=== PATIENT | female | born 1935 | race Caucasian/White ===

== ENCOUNTER 2018-11-17 20:20 | Inpatient (IN) | payer MEDICARE ==
[~2018-11-17] VITALS: Ht 165.1 cm; Wt 53.1 kg
--- NOTE | 2018-11-17 21:23 | NUR ---
Dr. graves at bedside
[2018-11-17] MEDS ORDERED: PIPERACILLIN SODIUM/TAZOBACTAM 3.375 G in IV DEXTROSE 5% 50 ML IV ONE (21:45)
[2018-11-17] MEDS ORDERED: IV NORMAL SALINE 1000 ML BAG IV ONE (21:45)
[2018-11-17] MEDS ORDERED: LEVOFLOXACIN 500 MG/D5W 100ML PIGGYBACK IV ONE (21:45)
--- NOTE | 2018-11-17 22:00 | NUR ---
Mendoza catheter inserted 16 sami. UA sample obtained and sent to lab.
[2018-11-17] MEDS ORDERED: LEVOFLOXACIN 500 MG/D5W 100 ML ONE (22:05)
[2018-11-17 22:06] LABS: BASOPHILS # (AUTO) 0.1 K/uL (0.0-8.0); BASOPHILS % (AUTO) 0.6 % (0.0-2.0); EOSINOPHILS # (AUTO) 0.1 K/uL (0.0-0.7); EOSINOPHILS % (AUTO) 1.1 % (0.0-7.0); HEMATOCRIT 38.3 % (31.2-41.9); HEMOGLOBIN 12.9 g/dL (10.9-14.3); LYMPHOCYTES # (AUTO) 1.5 K/uL (20.0-40.0); LYMPHOCYTES % (AUTO) 14.5 % (20.5-51.5); MEAN CORPUSCULAR HEMOGLOBIN 31.7 uug (24.7-32.8); MEAN CORPUSCULAR HGB CONC 34 g/dL (32.3-35.6); MEAN CORPUSCULAR VOLUME 94.3 fL (75.5-95.3); MONOCYTES # (AUTO) 0.8 K/uL (2.0-10.0); MONOCYTES % (AUTO) 7.3 % (0.0-11.0); NEUTROPHILS # (AUTO) 7.9 K/uL (1.8-8.9); NEUTROPHILS % (AUTO) 76.5 % (38.5-71.5); PLATELET COUNT (AUTO) 227 K/uL (179-408); RED BLOOD CELL COUNT(AUTO) 4.06 MIL/uL (3.63-4.92); WHITE BLOOD COUNT (AUTO) 10.3 K/uL (3.8-11.8)
[2018-11-17] MEDS ORDERED: PIPERACILLIN/TAZOBACTAM/D5W 50 ML IV ONE (22:06)
[2018-11-17 22:17] LABS: CARBON DIOXIDE 26 mmol/L (21-32); CHLORIDE 100 mmol/L (98-107); CREATININE 1.2 mg/dL (0.6-1.3); GLUCOSE 164 mg/dL (74-106); POTASSIUM 4.5 mmol/L (3.5-5.1); UREA NITROGEN, BLOOD 17 mg/dL (7-18)
[2018-11-17 22:22] LABS: ALANINE AMINOTRANSFERASE 13 U/L (14-59); ALKALINE PHOSPHATASE 64 U/L (50-136); ASPARTATE AMINOTRANSFERASE 19 U/L (15-37); BILIRUBIN,DIRECT 0.2 mg/dL (0.0-0.2); BILIRUBIN,TOTAL 0.8 mg/dL (0.2-1.0); TOTAL PROTEIN, SERUM 7.9 g/dL (6.4-8.2)
[2018-11-17 22:24] LABS: ACETAMINOPHEN < 2.0 ug/mL (10-30)
[2018-11-17 22:25] LABS: ETHANOL < 3 MG/DL (0-0)
[2018-11-17 22:30] LABS: THYROID STIMULATING HORMONE 0.936 mIU/mL (0.358-3.740)
[2018-11-17 22:44] LABS: *BILIRUBIN,URIN NEGATIVE (NEGATIVE); *BLOOD, URINE NEGATIVE (NEGATIVE); *CLARITY,URINE CLOUDY (CLEAR); *COLOR,URINE YELLOW (YELLOW); *KETONES,URINE NEGATIVE (NEGATIVE); *UROBILINOGEN,URINE 0.2 E.U./dl (NORMAL); LEUKOCYTE ESTERASE ,URINE TRACE (NEGATIVE); NITRITE, URINE POSITIVE (NEGATIVE); UGLUCOSE NEGATIVE (NEGATIVE)
[2018-11-17] MEDS ORDERED: hydrALAZINE HCL 20 MG/1 ML VIAL IV ONE (22:45)
--- NOTE | 2018-11-17 22:46 | NUR ---
patient taken down to CT.
[2018-11-17 22:51] LABS: BACTERIA,URINE MANY /HPF (NONE SEEN); RBC,URINE 0-3 /HPF (0-3); SQUAMOUS EPITHELIAL CELL,UR FEW /HPF (NONE SEEN)
[2018-11-17 22:53] LABS: *AMPHETAMINE, URINE NEGATIVE (NEGATIVE); *BARBITURATE, URINE NEGATIVE (NEGATIVE); *CANNABINOID, URINE NEGATIVE (NEGATIVE); *COCCAINE, URINE NEGATIVE (NEGATIVE); *OPIATE, URINE NEGATIVE (NEGATIVE); *PHENCYCLIDINE SCREEN,URINE NEGATIVE (NEGATIVE)
[2018-11-17] MEDS ORDERED: ONDANSETRON 4 MG/2 ML VIAL ONE (22:58)
[2018-11-17] MEDS ORDERED: ONDANSETRON 4 MG/2 ML VIAL IV ONE (23:00)
[2018-11-17] MEDS ORDERED: hydrALAZINE HCL 20 MG/1 ML VIAL ONE (23:01)
[2018-11-18] MEDS ORDERED: ASPI81TA44 PO (00:26)
[2018-11-18] MEDS ORDERED: ATOR40TA PO (00:26)
[2018-11-18] MEDS ORDERED: AMLO10TA7 PO (00:26)
[2018-11-18] MEDS ORDERED: VALS160T2 PO (00:27)
[2018-11-18] MEDS ORDERED: LEVO100T10 PO (00:27)
[2018-11-18] MEDS ORDERED: DIGO125T PO (00:27)
[2018-11-18] MEDS ORDERED: METO-357 PO (00:27)
[2018-11-18] MEDS ORDERED: NITR1PAT67 TD (00:27)
[2018-11-18] MEDS ORDERED: FERR325T28 PO (00:27)
[2018-11-18] MEDS ORDERED: DABI150C PO (00:27)
[2018-11-18] MEDS ORDERED: MAGNESIUM HYDROXIDE 30 ML LIQUID UDC PO PRN (00:45)
[2018-11-18] MEDS ORDERED: HYDROCODONE/APAP 5-325MG TABLET PO PRN (00:45)
[2018-11-18] MEDS ORDERED: ONDANSETRON 4 MG/2 ML VIAL IV PRN (00:45)
--- NOTE | 2018-11-18 01:30 | NUR ---
patient transferred to med surg. Report given prior to transfer.
--- NOTE | 2018-11-18 01:45 | NUR ---
ADMITTED PATIENT IN TELE FLOOR, NO SOB NO CHEST PAIN. PATIENT AWAKE BUT WITH CONFUSION, BODY CHECK DONE. PATIENT HAS NO COMPLAIN OF PAIN, HEALY CATH PATENT DRAINING WITH YELLOW COLOR URINE IN MODERATE AMOUNT. DAUGHTER AT BED SIDE. CONT TO MONITOR.
[2018-11-18 01:47] VITALS: BP 149/94
[2018-11-18] MEDS ORDERED: CEFTRIAXONE 1 G VIAL ONE (03:43)
[2018-11-18] MEDS: CEFTRIAXONE 1 G in IV DEXTROSE 5% 50 ML IV SCH (03:50)
[2018-11-18 05:07] VITALS: BP 168/86
--- NOTE | 2018-11-18 05:11 | NUR ---
PATIENT ALERT, NO SOB NO CHEST PAIN, TELE MONITOR A FIB BUT CONTROLLED AT 70. HEALY CATH PATENT DRAINING WITH YELLOW COLOR URINE, KEPT CLEAN AND DRY. CONT TO MONITOR.
[2018-11-18 06:35] LABS: BASOPHILS % (AUTO) 0.4 % (0.0-2.0); EOSINOPHILS % (AUTO) 0.1 % (0.0-7.0); HEMATOCRIT 36.9 % (31.2-41.9); HEMOGLOBIN 12.6 g/dL (10.9-14.3); LYMPHOCYTES # (AUTO) 1.4 K/uL (20.0-40.0); LYMPHOCYTES % (AUTO) 14.3 % (20.5-51.5); MEAN CORPUSCULAR HEMOGLOBIN 31.6 uug (24.7-32.8); MEAN CORPUSCULAR HGB CONC 34 g/dL (32.3-35.6); MEAN CORPUSCULAR VOLUME 92.4 fL (75.5-95.3); MONOCYTES # (AUTO) 0.8 K/uL (2.0-10.0); MONOCYTES % (AUTO) 8.2 % (0.0-11.0); NEUTROPHILS # (AUTO) 7.5 K/uL (1.8-8.9); PLATELET COUNT (AUTO) 235 K/uL (179-408); RED BLOOD CELL COUNT(AUTO) 3.99 MIL/uL (3.63-4.92); WHITE BLOOD COUNT (AUTO) 9.7 K/uL (3.8-11.8)
[2018-11-18 06:55] LABS: CARBON DIOXIDE 25 mmol/L (21-32); CHLORIDE 97 mmol/L (98-107); CHOLESTEROL 143 mg/dL (<200); CREATININE 1.1 mg/dL (0.6-1.3); GLUCOSE 150 mg/dL (74-106); HDL CHOLESTEROL 39 mg/dL (40-60); MAGNESIUM 1.6 mg/dL (1.8-2.4); POTASSIUM 4.2 mmol/L (3.5-5.1); TRIGLYCERIDES 113 MG/DL (30-150); UREA NITROGEN, BLOOD 17 mg/dL (7-18)
[2018-11-18] MEDS: ASPIRIN EC 81 MG TABLET.DR PO SCH (10:00)
[2018-11-18] MEDS: DIGOXIN 125 MCG TABLET PO SCH (10:01)
[2018-11-18] MEDS: METOPROLOL SUCCINATE XL 50 MG TAB.SR.24H PO SCH (10:05)
[2018-11-18] MEDS: VALSARTAN 160 MG TABLET PO SCH (10:05)
[2018-11-18] MEDS: AMLODIPINE 10 MG TABLET PO SCH (10:05)
[2018-11-18] MEDS: LEVOTHYROXINE SODIUM 100 MCG TABLET PO SCH (10:09)
[2018-11-18 11:54] VITALS: BP 126/60
[2018-11-18] MEDS ORDERED: DABIGATRAN ETEXILATE MESYLATE 150 MG CAPSULE PO ONE (12:15)
--- NOTE | 2018-11-18 13:00 | NUR ---
DR CRAWFORD AWARE OF TROPONIN LEVEL AT 0.318 STATED WILL CONSULT THE MANUFACTURING ENGINEER CHIEF
[2018-11-18] MEDS: MAGNESIUM SULFATE/D5W 100 ML IV SCH ×2 (15:51→17:08)
--- NOTE | 2018-11-18 16:07 | NUR ---
DR CRAWFORD AWARE OF MAG LEVEL 1.6 AND TROPONIN 0.318 WITH NEW MAG REPLACEMENT ORDERS AND NOTED.
[2018-11-18 16:21] VITALS: BP 150/61
[2018-11-18] MEDS: FERROUS SULFATE 325 MG TABEC PO SCH (17:42)
[2018-11-18] MEDS: NITROGLYCERIN 0.4MG/HR (=16 CM2) PATCH TD SCH (18:12)
--- NOTE | 2018-11-18 18:42 | NUR ---
PATIENTS DAUGHTER BROUGHT IN PATIENTS OWN MEDICATION PRADAXA SENT DOWN THE BOTTLE TO THE PHARMACY FOR VERIFICATION GIVEN TO DAMARI THE PHARMACIST.
[2018-11-18 19:42] VITALS: BP 158/73
--- NOTE | 2018-11-18 19:45 | NUR ---
PATIENT ALERT NO SOB NO CHEST PAIN NOTED, PATIENT HAS NO COMPLAIN OF PAIN. PATIENT HEALY CATH PATENT DRAINING WITH YELLOW COLOR URINE IN MODERATE. FAMILY AT BEDSIDES, PATIENT MORE ORIENTED THAN YESTERDAY. PATIENT BP ELEVATED, DR. BLANCAS HAS ORDER PREVIOUSLY OF PATCH FOR ELEVATED BP. PATIENT HAS NO DIZZINESS, NO HEADACHES ASYMPTOMATIC. PATIENT ON TELE MONITOR SINUS RHYTHM CONT TO MONITOR. Addendum: 11/19/18 at 0328 by ESPERANZA EDMONDSON RN PATIENT TELE MONITOR SINUS RHYTHM CONT TO MONITOR. CHARTING IN ERROR. PATIENT ON TELE MONITOR A FIB CONTROL AT THIS TIME. CONT TO MONITOR.
[2018-11-18] MEDS ORDERED: DABIGATRAN ETEXILATE MESYLATE 75 MG CAPSULE PO ONE (21:00)
[2018-11-18] MEDS: ATORVASTATIN 40 MG TABLET PO SCH (21:39)
[2018-11-19] VITALS: BP 157/78
[2018-11-19] MEDS: CEFTRIAXONE 1 G in IV DEXTROSE 5% 50 ML IV SCH ×2 (00:35→23:49)
[2018-11-19 04:21] VITALS: BP 161/85
[2018-11-19 06:16] LABS: BASOPHILS # (AUTO) 0.1 K/uL (0.0-8.0); BASOPHILS % (AUTO) 0.9 % (0.0-2.0); EOSINOPHILS # (AUTO) 0.2 K/uL (0.0-0.7); EOSINOPHILS % (AUTO) 2.3 % (0.0-7.0); HEMATOCRIT 35.4 % (31.2-41.9); LYMPHOCYTES # (AUTO) 1.5 K/uL (20.0-40.0); LYMPHOCYTES % (AUTO) 17.7 % (20.5-51.5); MEAN CORPUSCULAR HEMOGLOBIN 31.9 uug (24.7-32.8); MEAN CORPUSCULAR HGB CONC 34 g/dL (32.3-35.6); MEAN CORPUSCULAR VOLUME 94.1 fL (75.5-95.3); MONOCYTES # (AUTO) 0.9 K/uL (2.0-10.0); MONOCYTES % (AUTO) 10.3 % (0.0-11.0); NEUTROPHILS % (AUTO) 68.8 % (38.5-71.5); PLATELET COUNT (AUTO) 221 K/uL (179-408); RED BLOOD CELL COUNT(AUTO) 3.77 MIL/uL (3.63-4.92); WHITE BLOOD COUNT (AUTO) 8.6 K/uL (3.8-11.8)
[2018-11-19] MEDS: LEVOTHYROXINE SODIUM 100 MCG TABLET PO SCH (06:20)
[2018-11-19 06:35] LABS: BILIRUBIN,TOTAL 0.8 mg/dL (0.2-1.0); CREATININE 1.3 mg/dL (0.6-1.3); DIGOXIN 1.5 ng/mL (0.9-2.0); MAGNESIUM 2.2 mg/dL (1.8-2.4); PHOSPHOROUS 3.3 mg/dL (2.5-4.9); POTASSIUM 3.7 mmol/L (3.5-5.1); TOTAL PROTEIN, SERUM 6.8 g/dL (6.4-8.2)
--- NOTE | 2018-11-19 06:41 | NUR ---
PATIENT ALERT, NO SOB NO CHEST PAIN NOTED, TELE MONITOR A FIB CONTROL. PATIENT HAS NO COMPLAIN OF PAIN, COMPLAIN OF CONSTIPATION MOM WAS GIVEN AWAITING FOR RESULTS. PATIENT HAS TEA COLOR URINE DRAINING IN MODERATE AMOUNT. ENCOURAGED TO DRINK FLUIDS, NO ABDOMINAL/ANGELIC AREA PAIN, WILL CONT TO MONITOR.
[2018-11-19] MEDS: FERROUS SULFATE 325 MG TABEC PO SCH (08:33)
[2018-11-19] MEDS: ASPIRIN EC 81 MG TABLET.DR PO SCH (08:33)
[2018-11-19] MEDS: NITROGLYCERIN 0.4MG/HR (=16 CM2) PATCH TD SCH (08:37)
[2018-11-19] MEDS: AMLODIPINE 10 MG TABLET PO SCH (08:37)
[2018-11-19] MEDS: VALSARTAN 160 MG TABLET PO SCH (08:38)
[2018-11-19] MEDS: DIGOXIN 125 MCG TABLET PO SCH (08:39)
[2018-11-19] MEDS: METOPROLOL SUCCINATE XL 50 MG TAB.SR.24H PO SCH (08:39)
[2018-11-19] MEDS: Z GUARD REMEDY PASTE 57 GM TUBE TOP PRN (08:40)
[2018-11-19] MEDS ORDERED: DABIGATRAN ETEXILATE MESYLATE 150 MG CAPSULE PO SCH (09:00)
[2018-11-19] MEDS ORDERED: POTASSIUM CHLORIDE 20 MEQ TAB.PRT.SR PO ONE (10:15)
[2018-11-19 11:20] VITALS: BP 143/74
--- NOTE | 2018-11-19 11:30 | NUR ---
PATIENT ASSISTED TO THE COMMODE AND SHE HAD A BOWEL MOVEMENT ASWSITED WITH CLEAN UP AND BACK INTO BED.
--- NOTE | 2018-11-19 14:00 | NUR ---
PATIENT SEEN AND EXAMINED BY DR GLORIA AND SPOKE WITH PATIENTS FAMILY AT THE BEDSIDE IN DETAILS WITH NO NEW ORDERS AT THIS TIME.
[2018-11-19 15:40] VITALS: BP 143/69
--- NOTE | 2018-11-19 17:48 | NUR ---
PATIENT IS EATING BUT APPETITE IS POOR TODAY FAMILY BROUGHT IN SOME FOOD FROM THE OUTSIDE FOR HER AND SHE ATE JUST A LITTLE BITE FLUIDS ENCOURAGED AND WILL CONTINUE TO OBSERVE.
--- NOTE | 2018-11-19 18:39 | NUR ---
PATIENT IS BEING ENCOURAGED TO DRINK MORE FLUIDS FAMILY IN THE ROOM AND WERE INSTRUCTED TO OFFER HER SOME DRINKS EVERY NOW AND THEN AND THEY EXPRESSED UNDERSTANDING.
--- NOTE | 2018-11-19 19:20 | NUR ---
RECEIVED PT AWAKE, ALERT AND ORIENTEDX3. FAMILY AT BEDSIDE. PT SHOWS NO SIGNS OF ACUTE DISTRESS. IV INTACT. SAFETY AND COMFORT PROVIDED. WILL CONTINUE TO MONITOR.
[2018-11-19] MEDS: ATORVASTATIN 40 MG TABLET PO SCH (20:23)
[2018-11-19 20:27] VITALS: BP 139/75
[2018-11-20 00:24] VITALS: BP 135/72
[2018-11-20 04:00] VITALS: BP 132/74
--- NOTE | 2018-11-20 05:58 | NUR ---
PT SLEPT INTERMITTENTLY. PT SHOWS NO SIGNS OF ACUTE DISTRESS. IV INTACT. HEALY INTACT. PT HAD EPISODES OF FORGETFULNESS NEEDS REORIENTATION. PRESCRIBED MEDICATION GIVEN AND PT TOLERATED IT WELL. SAFETY AND COMFORT PROVIDED. ALL NEEDS ARE MET. WILL ENDORSE ACCORDINGLY TO INCOMING NURSE FOR CONTINUITY OF CARE.
[2018-11-20] MEDS: LEVOTHYROXINE SODIUM 100 MCG TABLET PO SCH (06:40)
--- NOTE | 2018-11-20 07:15 | NUR ---
IN BED AWAKE ALERT SEEMS AWARE BUT HAS DISORIENTATION AND FORGETFULNESS ON ROOM AIR WITH NO SHORTNESS OF BREATH AT THIS TIME.HEALY CATH PATENT AND DRAINING ADEQUATE AMOUNT OF URINE TELE IS AFIB CONTROLLED CALL LIGHTS AND PERSONAL BELONGINGS ARE PLACED WITHIN EASY REACH HEELS FLOATED MADE CCOMFORTABLE AND WILL CONTINUE TO OBSERVE.
[2018-11-20] MEDS: ASPIRIN EC 81 MG TABLET.DR PO SCH (09:48)
[2018-11-20] MEDS: DIGOXIN 125 MCG TABLET PO SCH (09:48)
[2018-11-20] MEDS: FERROUS SULFATE 325 MG TABEC PO SCH (09:48)
[2018-11-20] MEDS: CEphaleXIN 500 MG CAPSULE PO SCH ×2 (09:49→20:49)
[2018-11-20] MEDS: NITROGLYCERIN 0.4MG/HR (=16 CM2) PATCH TD SCH (09:50)
[2018-11-20] MEDS: AMLODIPINE 10 MG TABLET PO SCH (09:51)
[2018-11-20] MEDS: VALSARTAN 160 MG TABLET PO SCH (09:51)
[2018-11-20] MEDS: METOPROLOL SUCCINATE XL 50 MG TAB.SR.24H PO SCH (09:52)
[2018-11-20] MEDS: Z GUARD REMEDY PASTE 57 GM TUBE TOP PRN (09:53)
--- NOTE | 2018-11-20 10:00 | NUR ---
PATIENT IS AWAKE CONFUSED AND DISORIENTED ATTEMPTED TO GET OUT OF BED UNATTENDED AT RISKS FOR FALLS PULLED OUT HEPLOCK PRESSURE DRESSING APPLIED TO PREVENT BLEEDING REFUSED TO HAVE A NEW ONE INSERTED WILL NOTIFY DR CRAWFORD PATIENT HAS NO ROUTINE IV MEDICATIONS AT THIS TIME UNAWARE OF HER DESTINATION WITH POOR SAFETY AWARENESS STATED WANTS TO LEAVE AND GO HOME BUT DOES NOT KNOW WHERE HOME IS VERY DIFFICULT REDIRECTING HER SEEMS VERY DISPLEASED WITH EVERYTHING AND EVERYONE BUT AT THIS TIME PATIENT TWO DAUGHTERS CAME IN TO VISIT PATIENT KNOWS THEM BUT WAS VERY RUDE TO THEM AND INSISTED THAT SHE MUST LEAVE.IT TOOK MORE THAN 15 MINUTES TO CALM HER DOWN SHE TOOK HER DUE MEDICATIONS AND IS NOW QUIET AND RESTING IN BED. WILL CONTINUE TO OBSERVE AND PROVIDE SAFE AND THERAPEUTIC ENVIRONMENT AT ALL TIMES.
[2018-11-20 11:00] VITALS: BP 142/67
--- NOTE | 2018-11-20 13:44 | NUR ---
PATIENT SEEN AND EXAMINED BY DR [address] LIGHT SERVICER SUPERVISOR WITH ORDER TO DISCONTINUE TELEMETRY AND NOTED
[2018-11-20 15:02] VITALS: BP 141/77
--- NOTE | 2018-11-20 16:42 | NUR ---
RESTING IN BED MORE ALERT NO C/O AT THIS TIME WILL CONTINUE TO OBSERVE.
--- NOTE | 2018-11-20 19:20 | NUR ---
RECEIVED PT AWAKE, ALERT AND ORIENTEDX3. PT SHOWS NO SIGNS OF ACUTE DISTRESS. FAMILY AT BEDSIDE. HEALY INTACT. SAFETY AND COMFORT PROVIDED. WILL CONTINUE TO MONITOR.
[2018-11-20] MEDS: ATORVASTATIN 40 MG TABLET PO SCH (20:49)
[2018-11-20 20:53] VITALS: BP 113/59
[2018-11-21] MEDS: ACETAMINOPHEN 325 MG TABLET PO PRN (02:07)
[2018-11-21] MEDS: LEVOTHYROXINE SODIUM 100 MCG TABLET PO SCH (06:30)
--- NOTE | 2018-11-21 06:33 | NUR ---
PT SLEPT INTERMITTENTLY. PT SHOWS NO SIGNS OF ACUTE DISTRESS. PT FORGETFUL AND NEEDS REORIENTATION. PRESCRIBED MEDICATION GIVEN AND PT TOLERATED IT WELL. PT HEALY INTACT AND IV INTACT. SAFETY AND COMFORT PROVIDED. WILL ENDORSE TO INCOMING NURSE.
[2018-11-21 06:44] LABS: BASOPHILS % (AUTO) 0.5 % (0.0-2.0); EOSINOPHILS # (AUTO) 0.3 K/uL (0.0-0.7); EOSINOPHILS % (AUTO) 3.6 % (0.0-7.0); HEMATOCRIT 36.2 % (31.2-41.9); HEMOGLOBIN 12.3 g/dL (10.9-14.3); LYMPHOCYTES # (AUTO) 1.6 K/uL (20.0-40.0); LYMPHOCYTES % (AUTO) 21.1 % (20.5-51.5); MEAN CORPUSCULAR HEMOGLOBIN 31.6 uug (24.7-32.8); MEAN CORPUSCULAR HGB CONC 34 g/dL (32.3-35.6); MEAN CORPUSCULAR VOLUME 93.2 fL (75.5-95.3); MONOCYTES # (AUTO) 0.9 K/uL (2.0-10.0); MONOCYTES % (AUTO) 11.2 % (0.0-11.0); NEUTROPHILS # (AUTO) 4.9 K/uL (1.8-8.9); NEUTROPHILS % (AUTO) 63.6 % (38.5-71.5); PLATELET COUNT (AUTO) 244 K/uL (179-408); RED BLOOD CELL COUNT(AUTO) 3.88 MIL/uL (3.63-4.92); WHITE BLOOD COUNT (AUTO) 7.7 K/uL (3.8-11.8)
[2018-11-21 06:59] VITALS: BP 120/62
[2018-11-21 07:10] LABS: ALANINE AMINOTRANSFERASE 13 U/L (14-59); ALKALINE PHOSPHATASE 58 U/L (50-136); ASPARTATE AMINOTRANSFERASE 16 U/L (15-37); BILIRUBIN,TOTAL 0.8 mg/dL (0.2-1.0); CARBON DIOXIDE 26 mmol/L (21-32); CHLORIDE 99 mmol/L (98-107); CREATININE 1.1 mg/dL (0.6-1.3); GLUCOSE 122 mg/dL (74-106); MAGNESIUM 1.8 mg/dL (1.8-2.4); PHOSPHOROUS 3.6 mg/dL (2.5-4.9); POTASSIUM 4.3 mmol/L (3.5-5.1); TOTAL PROTEIN, SERUM 6.6 g/dL (6.4-8.2); UREA NITROGEN, BLOOD 19 mg/dL (7-18)
--- NOTE | 2018-11-21 07:30 | NUR ---
RECEIVED IN BED ASLEEP AWAKEN HER SHE IS ALERT AND COOPERATIVE AT THIS TIME NO S/S OF PAIN OR DISCOMFORTS AT THIS ORDER TO DISCONTINUE HEALY RECEIVED HEALY REMOVED AT THIS TIME AND INCONTINENT BRIEF APPLIED JUST IN CASE PATIENT INSTRUCTED TO CALL FOR A BEDPAN OR ASSISTANCE TO THE BATHROOM AND SHE EXPRESSED UNDERSTANDING WILL CONTINUE TO OBSERVE.
[2018-11-21] MEDS: CEphaleXIN 500 MG CAPSULE PO SCH ×2 (08:43→20:23)
[2018-11-21] MEDS: ASPIRIN EC 81 MG TABLET.DR PO SCH (08:44)
[2018-11-21] MEDS: FERROUS SULFATE 325 MG TABEC PO SCH (08:44)
[2018-11-21] MEDS: GLIMEPIRIDE 2 MG TABLET PO SCH (08:44)
[2018-11-21] MEDS: DIGOXIN 125 MCG TABLET PO SCH (08:45)
[2018-11-21] MEDS: Z GUARD REMEDY PASTE 57 GM TUBE TOP PRN (08:45)
[2018-11-21] MEDS: AMLODIPINE 10 MG TABLET PO SCH (08:46)
[2018-11-21] MEDS: METOPROLOL SUCCINATE XL 50 MG TAB.SR.24H PO SCH (08:46)
[2018-11-21] MEDS: VALSARTAN 160 MG TABLET PO SCH (08:46)
[2018-11-21] MEDS: NITROGLYCERIN 0.4MG/HR (=16 CM2) PATCH TD SCH (08:47)
--- NOTE | 2018-11-21 11:00 | NUR ---
PATIENT SEEN BY THE PHYSICAL THERAPY FOR AMBULATION WITH THE FRONT WHEEL WALKER IN THE HALLWAY WITH FAIR ENDURANCE MADE COMFORTABLE WILL CONTINUE TO OBSERVE
[2018-11-21 11:44] VITALS: BP 142/71
[2018-11-21 15:15] VITALS: BP 117/55
--- NOTE | 2018-11-21 18:19 | NUR ---
S/P HEALY CATH REMOVAL PATIENT IS VOIDING SHE IS CONTINENT OF BOWEL AND BLADDER DENIES DISCOMFORTS WILL CONTINUE TO OBSERVE.
[2018-11-21] MEDS: ATORVASTATIN 40 MG TABLET PO SCH ×2 (20:23→20:28)
[2018-11-21 20:51] VITALS: BP 132/75
[2018-11-22] MEDS: LEVOTHYROXINE SODIUM 100 MCG TABLET PO SCH (06:32)
[2018-11-22 06:55] VITALS: BP 148/79
--- NOTE | 2018-11-22 07:30 | NUR ---
Patient calm and comfortable with no signs of distress; Patient anox4 ; call light and safety devices in place. Patient will continue to be monitored.
[2018-11-22] MEDS: ASPIRIN EC 81 MG TABLET.DR PO SCH (08:32)
[2018-11-22] MEDS: GLIMEPIRIDE 2 MG TABLET PO SCH (08:32)
[2018-11-22] MEDS: CEphaleXIN 500 MG CAPSULE PO SCH ×2 (08:32→20:19)
[2018-11-22] MEDS: METOPROLOL SUCCINATE XL 50 MG TAB.SR.24H PO SCH (08:37)
[2018-11-22] MEDS: FERROUS SULFATE 325 MG TABEC PO SCH (08:38)
[2018-11-22] MEDS: AMLODIPINE 10 MG TABLET PO SCH (08:38)
[2018-11-22] MEDS: DIGOXIN 125 MCG TABLET PO SCH (08:38)
[2018-11-22] MEDS: VALSARTAN 160 MG TABLET PO SCH (08:39)
[2018-11-22] MEDS: NITROGLYCERIN 0.4MG/HR (=16 CM2) PATCH TD SCH (08:40)
[2018-11-22 11:07] VITALS: BP 137/76
[2018-11-22 15:27] VITALS: BP 131/73
[2018-11-22] MEDS: ACETAMINOPHEN 325 MG TABLET PO PRN (17:43)
--- NOTE | 2018-11-22 19:00 | NUR ---
Patient calm and cooperative laying in bed ; intermittently sleeping with no signs of distress; daughter came to visit patient.
[2018-11-22 20:00] VITALS: BP 131/65
[2018-11-22] MEDS: ATORVASTATIN 40 MG TABLET PO SCH (20:19)
[2018-11-22] MEDS: DABIGATRAN ETEXILATE MESYLATE 75 MG CAPSULE PO SCH (21:34)
--- NOTE | 2018-11-23 04:54 | NUR ---
patient received lying in bed and slept throughout the night. safety and comfort measures provided at all times. no signs of acute distress. v/s stable. will endorse care accordingly to morning nurse.
[2018-11-23 05:22] VITALS: BP 149/77
[2018-11-23] MEDS: LEVOTHYROXINE SODIUM 100 MCG TABLET PO SCH (06:30)
[2018-11-23] MEDS: GLIMEPIRIDE 2 MG TABLET PO SCH (08:39)
[2018-11-23] MEDS: FERROUS SULFATE 325 MG TABEC PO SCH (08:40)
[2018-11-23] MEDS: CEphaleXIN 500 MG CAPSULE PO SCH ×2 (08:40→20:46)
[2018-11-23] MEDS: ASPIRIN EC 81 MG TABLET.DR PO SCH (08:40)
[2018-11-23] MEDS: VALSARTAN 160 MG TABLET PO SCH (08:40)
[2018-11-23] MEDS: AMLODIPINE 10 MG TABLET PO SCH (08:41)
[2018-11-23] MEDS: DIGOXIN 125 MCG TABLET PO SCH (08:41)
[2018-11-23] MEDS: DABIGATRAN ETEXILATE MESYLATE 75 MG CAPSULE PO SCH ×2 (08:42→20:47)
[2018-11-23] MEDS: METOPROLOL SUCCINATE XL 50 MG TAB.SR.24H PO SCH (08:43)
[2018-11-23] MEDS: NITROGLYCERIN 0.4MG/HR (=16 CM2) PATCH TD SCH (08:43)
--- NOTE | 2018-11-23 08:57 | NUR ---
Received patient in Bed, awake and verbally responsive. No signs of Respiratory distress noted. No SOB. No complain of Pain or Discomfort. kept the call light within easy reach. All needs attended and met. Will continue to monitor.
[2018-11-23 11:22] VITALS: BP 118/85
[2018-11-23 15:07] VITALS: BP 126/62
--- NOTE | 2018-11-23 18:31 | NUR ---
Patient in Bed, awake and alert and verbally responsive. at bedside. No signs of Respiratory distress. No SOB. No complain pain or Discomfort. kept the call light within easy reach. All needs attended and met. Will Endorse to Oncoming Nurse.
--- NOTE | 2018-11-23 19:44 | NUR ---
Received awake in bed, noted present at bedside. Patient appears calm. Not in any form of distress. No complaints at the moment. Noted with IV access on the right forearm, 22g to saline lock secured with Kerlix, patent and intact. Bed in low position, locked, side rails up x2 for safety, call light within reach. Will continue to monitor.
[2018-11-23 20:00] VITALS: BP 119/56
[2018-11-23] MEDS: ATORVASTATIN 40 MG TABLET PO SCH (20:46)
[2018-11-24 05:03] VITALS: BP 150/74
--- NOTE | 2018-11-24 05:36 | NUR ---
Patient slept well throughout the night, no complaints were made, no distress noted. Attended all needs. Ensured safety and comfort. Noted for possible discharge today.
[2018-11-24] MEDS: LEVOTHYROXINE SODIUM 100 MCG TABLET PO SCH (06:32)
--- NOTE | 2018-11-24 07:10 | NUR ---
Received patient and verbally responsive. No signs of Respiratory distress noted. No SOB. no complain of Pain at this time. Denies chest pain. RFA IV site Intact. No signs of Infiltration noted. kept the call light within easy reach. Will continue to monitor.
[2018-11-24] MEDS: VALSARTAN 160 MG TABLET PO SCH (08:02)
[2018-11-24] MEDS: CEphaleXIN 500 MG CAPSULE PO SCH (08:02)
[2018-11-24] MEDS: DIGOXIN 125 MCG TABLET PO SCH (08:02)
[2018-11-24] MEDS: GLIMEPIRIDE 2 MG TABLET PO SCH (08:02)
[2018-11-24] MEDS: ASPIRIN EC 81 MG TABLET.DR PO SCH (08:02)
[2018-11-24] MEDS: FERROUS SULFATE 325 MG TABEC PO SCH (08:02)
[2018-11-24] MEDS: AMLODIPINE 10 MG TABLET PO SCH (08:03)
[2018-11-24] MEDS: METOPROLOL SUCCINATE XL 50 MG TAB.SR.24H PO SCH (08:04)
[2018-11-24] MEDS: DABIGATRAN ETEXILATE MESYLATE 75 MG CAPSULE PO SCH (08:04)
[2018-11-24] MEDS: NITROGLYCERIN 0.4MG/HR (=16 CM2) PATCH TD SCH (08:05)
[2018-11-24 11:55] VITALS: BP 124/68
--- NOTE | 2018-11-24 14:30 | NUR ---
patient with New Order for Discharge at [facility], patient will be machine operator hop picker by daughter and transport patient to SNF. case operator is aware.
--- NOTE | 2018-11-24 14:59 | NUR ---
Called [facility] and gave report to Jacob CAREY.
--- NOTE | 2018-11-24 15:00 | NUR ---
immigration case worker told me that patient will not be discharge to [facility], instead patient will be discharge to Home with Home Health with daughter.
[2018-11-24 15:27] VITALS: BP 120/59
--- NOTE | 2018-11-24 18:00 | NUR ---
patient in Bed, Awake and verbally responsive. No signs of respiratory distress noted. No complain of Pain or Discomfort. Discharge Instructions explained to patient and Daughter, verbalized Understanding. All belongings was signed and sent to patient. Assisted patient via Wheelchair to transfer to car. Patient left with daughter in stable condition via private car..
== END 2018-11-24 18:00 | disposition home health service (06) | DRG 871 ==
LOC: ER 20:24 → TELE3 23:19 → MEDSURG3 11-20 13:55
PROVIDERS: ADMIT Family Medicine; ATTEND Internal Medicine
DX: A41.9 Sepsis, unspecified organism (principal); G92 Toxic encephalopathy; I21.A1 Myocardial infarction type 2; N39.0 Urinary tract infection, site not specified; D68.59 Other primary thrombophilia; I69.351 Hemiplegia and hemiparesis following cerebral infarction affecting right dominant side; R65.20 Severe sepsis without septic shock; I48.2 Chronic atrial fibrillation; Z79.01 Long term (current) use of anticoagulants; I25.10 Atherosclerotic heart disease of native coronary artery without angina pectoris; Z95.5 Presence of coronary angioplasty implant and graft; Z79.82 Long term (current) use of aspirin; B96.20 Unspecified Escherichia coli [E. coli] as the cause of diseases classified elsewhere; E78.5 Hyperlipidemia, unspecified; F01.50 Vascular dementia, unspecified severity, without behavioral disturbance, psychotic disturbance, mood disturbance, and anxiety; I11.9 Hypertensive heart disease without heart failure; I07.1 Rheumatic tricuspid insufficiency; E83.42 Hypomagnesemia; E11.9 Type 2 diabetes mellitus without complications; E03.9 Hypothyroidism, unspecified; Z79.890 Hormone replacement therapy; Z96.641 Presence of right artificial hip joint; Z90.710 Acquired absence of both cervix and uterus; Z98.42 Cataract extraction status, left eye; Z98.41 Cataract extraction status, right eye; K21.9 Gastro-esophageal reflux disease without esophagitis; I69.320 Aphasia following cerebral infarction; Z91.81 History of falling; Z87.440 Personal history of urinary (tract) infections
CPT/HCPCS: 36415; 51702; 70030-TC; 70450; 71045; 80307; 83605; 83735; 84100; 84443; 85025; 85730; 87040; 87077; 87086; 93005; 93307; A4663; C1758; G0378; G0480; G0480-TC; J0360; J0696; J1956; J2405; J2543; J3475; J7030; J7060